=== PATIENT | male | born 1955 | race Caucasian/White ===

== ENCOUNTER 2016-08-27 08:21 | Day surgery (SDC) | payer BC, MEDICAID ==
[2016-08-27 11:47] VITALS: BP 161/93
--- NOTE | 2016-08-31 14:44 | OR ---
DATE OF PROCEDURE: 08/27/2016 PREOPERATIVE DIAGNOSIS: Possible colitis. POSTOPERATIVE DIAGNOSIS: Possible colitis involving the sigmoid colon and rectum. OPERATIVE PROCEDURE: Flexible sigmoidoscopy with random biopsies of the sigmoid colon and rectum ([id number]). ANESTHESIA: None. INDICATIONS FOR PROCEDURE: This is a 61-year-old, presenting with frequent loose bowel movements and/or diarrhea, they had become more or less debilitating. It is unclear as to the etiology. Plan is to proceed with a flexible sigmoidoscopy with a targeted random biopsy depending on the operative findings. Potential risks of the procedure including bleeding and perforation were discussed, and the patient wishes to proceed. DETAILS OF PROCEDURE: The patient was taken to the operating room and placed in the left lateral decubitus position. IV sedation was administered, after which the initial digital rectal exam was performed and was unremarkable. The flexible sigmoidoscope was then passed into the rectum with retroflexion revealing uncomplicated hemorrhoidal columns. The scope was eventually passed to roughly 40 cm from the dentate line. There was some possible very slight reddening within the mid and distal sigmoid colon, but this may in fact have been a normal variant, photo documentation was obtained. Certainly, there was no obvious gross inflammation and no ulceration or fibrinous exudate. Stool cultures were intended to be obtained for followup, but the preoperative fleet enema completely cleared all of the stool in the field of exam. At this point, multiple biopsies from the mid sigmoid colon, downward into the rectum, were randomly obtained and sent for histologic evaluation. No bleeding from the biopsy sites was seen and the procedure then concluded. The patient was taken to the recovery room in satisfactory condition. We will notify the patient when the pathology reports are back along with his referring physician in [place] to initiate followups. King Centeno MD /[id number]
== END 2016-08-27 11:55 | disposition home or self-care (01) ==
LOC: JP.SDS 08:21
PROVIDERS: ATTEND Surgery
DX: R19.7 Diarrhea, unspecified (principal); M10.9 Gout, unspecified; E53.8 Deficiency of other specified B group vitamins; E78.5 Hyperlipidemia, unspecified; I10 Essential (primary) hypertension; K21.9 Gastro-esophageal reflux disease without esophagitis; F12.90 Cannabis use, unspecified, uncomplicated; Z88.8 Allergy status to other drugs, medicaments and biological substances; Z91.09 Other allergy status, other than to drugs and biological substances; Z88.6 Allergy status to analgesic agent; Z79.899 Other long term (current) drug therapy
CPT/HCPCS: 88305

== ENCOUNTER 2020-09-26 12:21 | Emergency (ER) | payer MEDICARE, BC ==
[2020-09-26 12:43] VITALS: BP 147/86; PULSE 66
[2020-09-26] MEDS ORDERED: Alum Hydrox/Mag Hydrox/Simeth 15 ML, Lidocaine 2% 15 ML PO ONE ×2 (13:15)
--- NOTE | 2020-09-26 13:20 | EDM.PDOC ---
ED HPI GENERAL MEDICAL PROBLEM - General Chief Complaint: Chest Pain Stated Complaint: ANGINA Time Seen by Provider: 09/26/20 13:05 Source of Information: Reports: Patient, Old Records, RN History Limitations: Reports: No Limitations - History of Present Illness INITIAL COMMENTS - FREE TEXT/NARRATIVE: 65 yo male marijuana smoker presents with a few week hx of exertional chest p ain. No associated sx's. He has a positive FHx of CAD, but no personal hx. He has known elevated triglycerides. He is not having pain now, but did earlier with attempts at raking. He called the clinic and was directed to the ER. Onset: Gradual Duration: Week(s):, Intermittent Location: Reports: Chest Quality: Reports: Pressure Severity: Mild Improves with: Reports: Rest Worsens with: Reports: Movement (exertion) Context: Reports: Other (See HPI) Associated Symptoms: Reports: No Other Symptoms Treatments [employer]PER[employer] C[employer]TING [employer]ING: Reports: Other (see below) (none) - Related Data Allergies Allergy/AdvReac Type Severity Reaction Status Date / Time acetaminophen Allergy Severe Hives Verified 09/26/20 12:50 NSAIDS (Non-Steroidal Allergy Severe Hives Verified 09/26/20 12:50 Anti-Inflamma hydrocodone [From [place]] Allergy Intermediate Itching Verified 09/26/20 12:46 dust mite extract Allergy Severe Difficulty Uncoded 09/26/20 12:46 Breathing tree extract Allergy Severe Difficulty Uncoded 09/26/20 12:46 Breathing cats Allergy Intermediate Difficulty Uncoded 09/26/20 12:46 Breathing dogs Allergy Intermediate Difficulty Uncoded 09/26/20 12:46 Breathing tramadol Allergy Unknown Cannot Uncoded 09/26/20 12:46 Remember Home Meds: Home Meds Amylase/Lipase/Protease [Vitaliy NAIR 24,000 Unit] 2 cap PO TIDMEALS 08/26/16 [History] Cyanocobalamin (Vitamin B-12) [Cyanocobalamin Injection] 1,000 mcg IJ .QMONTH 08/26/16 [History] Omeprazole 20 mg PO DAILY 08/26/16 [History] amLODIPine [Norvasc] 5 mg PO DAILY 08/26/16 [History] atenoloL [Atenolol] 50 mg PO DAILY 08/26/16 [History] Montelukast Sodium [Singulair] 10 mg PO DAILY 09/29/17 [History] allopurinoL [Zyloprim] 100 mg PO BID 09/20/19 [History] Past Medical History HEENT History: Reports: Other (See Below) Other HEENT History: Stigmatism Cardiovascular History: Reports: High Cholesterol, Hypertension Respiratory History: Reports: Asthma, Bronchitis, Recurrent Gastrointestinal History: Reports: GERD, Irritable Bowel Syndrome, Other (See Below) Other Gastrointestinal History: Pancreatic deficiency Musculoskeletal History: Reports: Other (See Below) Other Musculoskeletal History: hx of 3 cervical fusions in neck. Hematologic History: Reports: B12 Deficiency Dermatologic History: Reports: Seborrheic Dermatitis - Infectious Disease History Infectious Disease History: Reports: Chicken Pox, Measles, Mumps - Past Surgical History HEENT Surgical History: Reports: Oral Surgery Other HEENT Surgeries/Procedures: Jaw repair. also roto rueter for sinus blockage. GI Surgical History: Reports: Colonoscopy Other Neurological Surgeries/Procedures: 3 cervical infusions Social & Family History - Tobacco Use Tobacco Use Status *Q: Never Tobacco User - Caffeine Use Caffeine Use: Reports: Soda - Alcohol Use Days Per Week of Alcohol Use: 7 Number of Drinks Per Day: 2 Total Drinks Per Week: 14 Date of Last Drink: 09/25/20 - Recreational Drug Use Recreational Drug Use: Yes Drug Use in Last 12 Months: Yes Recreational Drug Type: Reports: Marijuana/Hashish Recreational Drug Use Frequency: Weekly ED ROS GENERAL - Review of Systems Review Of Systems: See Below Constitutional: Reports: No Symptoms HEENT: Reports: No Symptoms Respiratory: Reports: No Symptoms Cardiovascular: Reports: Chest Pain Endocrine: Reports: No Symptoms GI/Abdominal: Reports: No Symptoms : Reports: No Symptoms Musculoskeletal: Reports: No Symptoms Skin: Reports: No Symptoms Neurological: Reports: No Symptoms Psychiatric: Reports: No Symptoms ED EXAM, GENERAL - Physical Exam Exam: See Below Exam Limited By: No Limitations General Appearance: Alert, WD/WN, No Apparent Distress Eye Exam: Bilateral Eye: Normal Inspection Ears: Normal External Exam, Normal Canal, Hearing Grossly Normal, Normal TMs Ear Exam: Bilateral Ear: Auricle Normal, Canal Normal, TM normal Nose: Normal Inspection, No Blood Throat/Mouth: Normal Inspection, Normal Lips, Normal Oropharynx, Normal Voice, No Airway Compromise Head: Atraumatic, Normocephalic Neck: Normal Inspection Respiratory/Chest: No Respiratory Distress, Lungs Clear, Normal Breath Sounds, No Accessory Muscle Use Cardiovascular: Regular Rate, Rhythm, No Edema GI/Abdominal: Normal Bowel Sounds, Soft, No Distention, Tender (epigastric). No: Non-Tender, Distended Back Exam: Normal Inspection Extremities: Normal Inspection, Normal Range of Motion, Non-Tender, No Pedal Edema Neurological: Alert, Oriented, CN II-XII Intact, Normal Cognition, No Motor/Sensory Deficits Psychiatric: Normal Affect, Normal Mood Skin Exam: Warm, Dry, Intact, Normal Color, No Rash #1 Interpretation EKG Date: 09/26/20 Time: 13:40 Rhythm: NSR Rate (Beats/Min): 56 [place]: Normal P-Wave: Present QRS: Normal ST-T: Normal QT: Normal Comparison: NA - No Prior EKG Course - Vital Signs Last Recorded V/S: Last Vital Signs Temp 36.3 C 09/26/20 12:42 Pulse 66 09/26/20 12:42 Resp 16 09/26/20 12:42 BP 147/86 H 09/26/20 12:42 Pulse Ox 96 09/26/20 12:42 - Orders/Labs/Meds Orders: Active Orders 24 hr Category Date Time Status Cardiac Monitoring [RC] .As Directed Care 09/26/20 12:36 Active EKG Documentation Completion [RC] ASDIRECTED Care 09/26/20 12:36 Active EKG 12 Lead [EK] Routine Ther 09/26/20 12:36 Ordered Labs: Laboratory Tests 09/26/20 09/26/20 Range/Units 13:20 13:20 WBC 8.8 (4.5-11.0) K/uL RBC 4.54 (4.30-5.90) M/uL Hgb 14.3 (12.0-15.0) g/dL Hct 44.5 (40.0-54.0) % MCV 98 (80-98) fL MCH 32 H (27-31) pg MCHC 32 (32-36) % Plt Count 209 (150-400) K/uL Sodium 142 (140-148) mmol/L Potassium 4.0 (3.6-5.2) mmol/L Chloride 106 (100-108) mmol/L Carbon Dioxide 28 (21-32) mmol/L Anion Gap 8.4 (5.0-14.0) mmol/L BUN 19 H (7-18) mg/dL Creatinine 1.3 (0.8-1.3) mg/dL Est Cr Clr Drug Dosing 57.57 mL/min Estimated GFR (MDRD) 55 L (>60) Glucose 104 (74-106) mg/dL Calcium 9.2 (8.5-10.1) mg/dL Troponin I < 0.017 (0.000-0.056) ng/mL Meds: Medications Discontinued Medications Generic Name Dose Route Start Last Admin Trade Name Nelson PRN Reason Stop Dose Admin Aspirin 324 mg 09/26/20 13:21 09/26/20 14:15 Aspirin 81 Mg Tab.Chew PO 09/26/20 13:22 Not Given ONETIME ONE Al Hydroxide/Mg Hydroxide 15 0 ml 09/26/20 13:15 09/26/20 14:10 ml/ Lidocaine HCl 15 ml PO 09/26/20 13:16 30 ml ONETIME ONE Administration - Re-Assessments/Exams Free Text/Narrative Re-Assessment/Exam: 09/26/20 14:25 epigastric pain gone after GI cocktail Departure - Departure Time of Disposition: 14:25 Disposition: Home, Self-Care 01 Condition: Fair Clinical Impression: Exertional chest pain Gastritis Qualifiers: Gastritis type: unspecified gastritis Chronicity: acute Gastritis bleeding: without bleeding Qualified Code(s): K29.00 - Acute gastritis without bleeding Instructions: Gastritis, Adult, [id number], Nonspecific Chest Pain, Adult Referrals: Tolu Huerta HIGH WORKER [Primary Care Provider] - Forms: ED Department Discharge Additional Instructions: Take famotidine 40 mg every day in the evening. You may also take Gaviscon per package instructions for added relief. Return for a stress test to further assess your chest pains. Return if you have pain at rest that does not resolve promptly. Sepsis Event Note (ED) - Evaluation Sepsis Screening Result: No Definite Risk - Focused Exam Vital Signs: Vital Signs Temp Pulse Resp BP Pulse Ox 09/26/20 12:42 36.3 C 66 16 147/86 H 96 - My Orders Last 24 Hours: My Active Orders 09/26/20 12:36 Cardiac Monitoring [RC] .As Directed EKG Documentation Completion [RC] ASDIRECTED EKG 12 Lead [EK] Routine - Assessment/Plan Last 24 Hours: My Active Orders 09/26/20 12:36 Cardiac Monitoring [RC] .As Directed EKG Documentation Completion [RC] ASDIRECTED EKG 12 Lead [EK] Routine
[2020-09-26] MEDS: Aspirin 81 MG Tab.Chew PO ONE ×2 (14:05→14:15)
== END 2020-09-26 15:04 | disposition home or self-care (01) ==
LOC: JP.ED 12:21
DX: K29.00 Acute gastritis without bleeding (principal); I10 Essential (primary) hypertension; J45.909 Unspecified asthma, uncomplicated; K21.9 Gastro-esophageal reflux disease without esophagitis; Z88.6 Allergy status to analgesic agent; Z91.048 Other nonmedicinal substance allergy status; Z88.5 Allergy status to narcotic agent; Z79.899 Other long term (current) drug therapy
CPT/HCPCS: 36415; 80048; 84484; 85027; 93005; 99285; A9270

== ENCOUNTER 2021-06-15 08:26 | Emergency (ER) | payer MEDICARE, BC ==
[2021-06-15 08:44] VITALS: BP 174/92; PULSE 65
[2021-06-15 09:37] LABS: CORONAVIRUS COVID-19 NAA NEGATIVE (NEGATIVE)
[2021-06-15] MEDS ORDERED: Ketorolac 30 MG/ML SDV IM ONE (10:00)
--- NOTE | 2021-06-15 10:03 | EDM.PDOC ---
ED HPI GENERAL MEDICAL PROBLEM - General Chief Complaint: Respiratory Problem Stated Complaint: allergic reaction Time Seen by Provider: 06/15/21 09:44 Source of Information: Reports: Patient, RN Notes Reviewed History Limitations: Reports: No Limitations - History of Present Illness INITIAL COMMENTS - FREE TEXT/NARRATIVE: 65-year-old gentleman presents emergency department today concerned about allergic reaction, he has had difficulty with Augmentin in the past with throat swelling he took a tablet on approximately 72 hours prior had a similar reaction only it was worse he now is complaining of generalized inflammation in his chest feeling difficult to breathe hurts to lay down in the thoracic region feels like his abdomen is distended. Left Abdomen Pain Score (Numeric/FACES): 7 - Related Data Allergies Allergy/AdvReac Type Severity Reaction Status Date / Time acetaminophen Allergy Severe Hives Verified 06/15/21 08:45 NSAIDS (Non-Steroidal Allergy Severe Hives Verified 06/15/21 08:45 Anti-Inflamma hydrocodone [From [place]] Allergy Intermediate Itching Verified 06/15/21 08:45 dust mite extract Allergy Severe Difficulty Uncoded 06/15/21 08:45 Breathing tree extract Allergy Severe Difficulty Uncoded 06/15/21 08:45 Breathing cats Allergy Intermediate Difficulty Uncoded 06/15/21 08:45 Breathing dogs Allergy Intermediate Difficulty Uncoded 06/15/21 08:45 Breathing tramadol Allergy Unknown Cannot Uncoded 06/15/21 08:45 Remember Home Meds: Home Meds Amylase/Lipase/Protease [Vitaliy NAIR 24,000 Unit] 2 cap PO TIDMEALS 08/26/16 [History] Cyanocobalamin (Vitamin B-12) [Cyanocobalamin Injection] 1,000 mcg IJ .QMONTH 08/26/16 [History] amLODIPine [Norvasc] 5 mg PO DAILY 08/26/16 [History] atenoloL [Atenolol] 50 mg PO DAILY 08/26/16 [History] Montelukast Sodium [Singulair] 10 mg PO DAILY 09/29/17 [History] Clopidogrel [Plavix] 75 mg PO DAILY 06/15/21 [History] Past Medical History HEENT History: Reports: Other (See Below) Other HEENT History: Stigmatism Cardiovascular History: Reports: Angina, High Cholesterol, Hypertension, Stents Respiratory History: Reports: Asthma, Bronchitis, Recurrent Gastrointestinal History: Reports: GERD, Irritable Bowel Syndrome, Other (See Below) Other Gastrointestinal History: Pancreatic deficiency Musculoskeletal History: Reports: Other (See Below) Other Musculoskeletal History: hx of 3 cervical fusions in neck. Hematologic History: Reports: B12 Deficiency Dermatologic History: Reports: Seborrheic Dermatitis - Infectious Disease History Infectious Disease History: Reports: Chicken Pox, Measles, Mumps - Past Surgical History HEENT Surgical History: Reports: Oral Surgery Other HEENT Surgeries/Procedures: Jaw repair. also roto rueter for sinus blockage. GI Surgical History: Reports: Colonoscopy Other Neurological Surgeries/Procedures: 3 cervical infusions Musculoskeletal Surgical History: Reports: Shoulder Surgery Other Musculoskeletal Surgeries/Procedures:: rotator cuff 2019 Social & Family History - Tobacco Use Tobacco Use Status *Q: Never Tobacco User Second Hand Smoke Exposure: No - Caffeine Use Caffeine Use: Reports: Coffee - Alcohol Use Days Per Week of Alcohol Use: 6 Number of Drinks Per Day: 2 Total Drinks Per Week: 12 - Recreational Drug Use Recreational Drug Use: Yes Recreational Drug Type: Reports: Marijuana/Hashish ED ROS GENERAL - Review of Systems Review Of Systems: See Below (None) Constitutional: Reports: No Symptoms HEENT: Reports: No Symptoms Respiratory: Reports: Shortness of Breath Cardiovascular: Reports: No Symptoms GI/Abdominal: Reports: Distension Musculoskeletal: Reports: Back Pain ED EXAM, GENERAL - Physical Exam Exam: See Below Exam Limited By: No Limitations General Appearance: Alert, WD/WN, No Apparent Distress Respiratory/Chest: No Respiratory Distress, Lungs Clear, Normal Breath Sounds, No Accessory Muscle Use, Chest Non-Tender Cardiovascular: Regular Rate, Rhythm, No Murmur GI/Abdominal: Soft, Non-Tender, No Distention Course - Vital Signs Last Recorded V/S: Last Vital Signs Temp 96 F L 06/15/21 08:39 Pulse 65 06/15/21 08:39 Resp 16 06/15/21 08:39 BP 174/92 H 06/15/21 08:39 Pulse Ox 96 06/15/21 08:39 - Orders/Labs/Meds Orders: Active Orders 24 hr Category Date Time Status Abdomen 1V Upright [CR] Stat Exams 06/15/21 09:59 Taken Chest 2V [CR] Stat Exams 06/15/21 09:59 Taken Isolation [COMM] Stat Oth 06/15/21 08:32 Ordered Labs: Laboratory Tests 0106/15/21 06/15/21 Range/Units 08:56 10:11 10:11 WBC 10.8 (3.2-11.0) K/uL RBC 4.52 (4.14-5.76) M/uL Hgb 14.4 (12.9-16.9) Hct 44.1 (38.4-49.7) % MCV 97.6 (81.4-99.0) fL MCH 31.9 (31.6-35.5) pg MCHC 32.7 (31.6-35.5) g/dL Plt Count 217 (130-375) K/uL Immature Gran % (Auto) 1.0 H (0.0-0.7) % Neut % (Auto) 70.6 H (36-66) % Lymph % (Auto) 19.8 L (24-44) % [place] % (Auto) 7.8 H (2-6) % Eos % (Auto) 0.6 L (2-4) % Baso % (Auto) 0.2 (0-1) % Neut # (Auto) 7.62 H (1.0-7.6) K/uL Lymph # (Auto) 2.13 (0.8-3.3) K/uL [place] # (Auto) 0.84 (0.20-0.90) K/uL Eos # (Auto) 0.06 (0.00-0.40) K/uL Baso # (Auto) 0.02 (0.00-0.10) K/uL Immature Gran # (Auto) 0.11 (0.00-0.23) K/uL Sodium 139 L (140-148) mmol/L Potassium 4.0 (3.6-5.2) mmol/L Chloride 102 (100-108) mmol/L Carbon Dioxide 28 (21-32) mmol/L Anion Gap 13.0 (5.0-14.0) mmol/L BUN 23 H D (7-18) mg/dL Creatinine 1.3 (0.8-1.3) mg/dL Est Cr Clr Drug Dosing 56.65 mL/min Estimated GFR (MDRD) 55 L (>60) Glucose 98 (74-106) mg/dL Lactic Acid (0.4-2.0) mmol/L Calcium 9.4 (8.5-10.1) mg/dL Total Bilirubin 0.7 (0.2-1.0) mg/dL AST 24 (15-37) U/L ALT 60 (12-78) U/L Alkaline Phosphatase 54 (46-116) U/L Troponin I High Sens 6.1 (<=60.3) pg/mL C-Reactive Protein 0.05 (0.0-0.3) mg/dL Total Protein 6.9 (6.4-8.2) g/dL Albumin 4.2 (3.4-5.0) g/dL Globulin 2.7 (2.3-3.5) g/dL Albumin/Globulin Ratio 1.6 (1.2-2.2) Influenza Type A RNA Negative (NEGATIVE) RSV RNA (INAAT) Negative (NEGATIVE) Influenza Type B RNA Negative (NEGATIVE) SARS-CoV-2 RNA ([facility]) Negative (NEGATIVE) 06/15/21 Range/Units 10:11 WBC (3.2-11.0) K/uL RBC (4.14-5.76) M/uL Hgb (12.9-16.9) Hct (38.4-49.7) % MCV (81.4-99.0) fL MCH (31.6-35.5) pg MCHC (31.6-35.5) g/dL Plt Count (130-375) K/uL Immature Gran % (Auto) (0.0-0.7) % Neut % (Auto) (36-66) % Lymph % (Auto) (24-44) % [place] % (Auto) (2-6) % Eos % (Auto) (2-4) % Baso % (Auto) (0-1) % Neut # (Auto) (1.0-7.6) K/uL Lymph # (Auto) (0.8-3.3) K/uL [place] # (Auto) (0.20-0.90) K/uL Eos # (Auto) (0.00-0.40) K/uL Baso # (Auto) (0.00-0.10) K/uL Immature Gran # (Auto) (0.00-0.23) K/uL Sodium (140-148) mmol/L Potassium (3.6-5.2) mmol/L Chloride (100-108) mmol/L Carbon Dioxide (21-32) mmol/L Anion Gap (5.0-14.0) mmol/L BUN (7-18) mg/dL Creatinine (0.8-1.3) mg/dL Est Cr Clr Drug Dosing mL/min Estimated GFR (MDRD) (>60) Glucose (74-106) mg/dL Lactic Acid 1.7 (0.4-2.0) mmol/L Calcium (8.5-10.1) mg/dL Total Bilirubin (0.2-1.0) mg/dL AST (15-37) U/L ALT (12-78) U/L Alkaline Phosphatase (46-116) U/L Troponin I High Sens (<=60.3) pg/mL C-Reactive Protein (0.0-0.3) mg/dL Total Protein (6.4-8.2) g/dL Albumin (3.4-5.0) g/dL Globulin (2.3-3.5) g/dL Albumin/Globulin Ratio (1.2-2.2) Influenza Type A RNA (NEGATIVE) RSV RNA (INAAT) (NEGATIVE) Influenza Type B RNA (NEGATIVE) SARS-CoV-2 RNA ([facility]) (NEGATIVE) Meds: Medications Discontinued Medications Generic Name Dose Route Start Last Admin Trade Name Nelson PRN Reason Stop Dose Admin Ketorolac Tromethamine 30 mg 06/15/21 10:00 06/15/21 10:24 Ketorolac 30 Mg/Ml Sdv IM 06/15/21 10:01 30 mg ONETIME ONE Administration Departure - Departure Time of Disposition: 11:35 Disposition: Home, Self-Care 01 Condition: Fair Clinical Impression: Allergic reaction Qualifiers: Encounter type: initial encounter Qualified Code(s): T78.40XA - Allergy, unspecified, initial encounter - Discharge Information Instructions: Allergies, Adult, [id number] Referrals: Tolu Huerta NP [Primary Care Provider] - Forms: ED Department Discharge Additional Instructions: Continue with uretic medications, recommend nonsteroidal anti-inflammatories, please followup with your primary care provider in 3-5 days if not better, please call return to the emergency department with worsening of symptoms. Sepsis Event Note (ED) - Evaluation Sepsis Screening Result: No Definite Risk - Focused Exam Vital Signs: Vital Signs Temp Pulse Resp BP Pulse Ox 06/15/21 08:39 96 F L 65 16 174/92 H 96 - My Orders Last 24 Hours: My Active Orders 06/15/21 08:32 Isolation [COMM] Stat 06/15/21 09:59 Abdomen 1V Upright [CR] Stat Chest 2V [CR] Stat - Assessment/Plan Last 24 Hours: My Active Orders 06/15/21 08:32 Isolation [COMM] Stat 06/15/21 09:59 Abdomen 1V Upright [CR] Stat Chest 2V [CR] Stat Plan: Assessment Acuity = acute Site and laterality = allergic reaction Etiology = possibly the Augmentin Manifestations = none Location of injury = Home Lab values = CBC BMP lactic acid, troponin, CRP all within normal limits chest x-ray abdominal film I did review films myself I cannot appreciate any acute process, the official read from radiology is pending Plan He had some improvement with Toradol provided in the emergency department prescription written for Flexeril 10 mg 1 tab p.o. 3 times daily as needed total #15 and follow-up with his primary care next 3 to 5 days if not better This note was dictated using [employer] voice recognition software please call with any questions on syntax or grammar.
--- NOTE | 2021-06-16 10:17 | CR ---
Abdomen 1V Upright CLINICAL HISTORY: Pain FINDINGS: No free air is identified. The small intestinal configuration is nonacute. There is some gas and feces in the colon. No urinary stones are identified IMPRESSION: Nonacute intestinal gas pattern
--- NOTE | 2021-06-17 10:54 | CR ---
CHEST: 2 view CLINICAL HISTORY:Chest pain COMPARISON:None FINDINGS: The heart size, pulmonary vascularity and hilar structures are normal. No infiltrate effusion or pneumothorax is seen. IMPRESSION: No acute cardiopulmonary process.
== END 2021-06-15 11:50 | disposition home or self-care (01) ==
LOC: JP.ED 08:26
DX: T78.40XA Allergy, unspecified, initial encounter (principal); I10 Essential (primary) hypertension; Z20.822 Contact with and (suspected) exposure to COVID-19; Z88.8 Allergy status to other drugs, medicaments and biological substances; Z79.899 Other long term (current) drug therapy
CPT/HCPCS: 0241U; 36415; 71046; 74018; 80053; 83605; 84484; 85025; 86140; 96372; 99283; J1885

== ENCOUNTER 2021-06-20 12:22 | Emergency (ER) | payer MEDICARE, BC ==
[2021-06-20] MEDS ORDERED: Sodium Chloride 0.9% 1,000 ML IV SCH (13:15)
[2021-06-20] MEDS ORDERED: Iopamidol 612 MG/ML 100 ML Bottle IV PRN (13:29)
[2021-06-20] MEDS: Sodium Chloride 0.9% 10 ML Syringe FLUSH ONE ×2 (13:57→14:33)
[2021-06-20 14:14] VITALS: BP 159/92; PULSE 73
== END 2021-06-20 16:12 | disposition home or self-care (01) ==
LOC: JP.ED 12:22
DX: R14.0 Abdominal distension (gaseous) (principal); I10 Essential (primary) hypertension; J45.909 Unspecified asthma, uncomplicated; Z88.6 Allergy status to analgesic agent; Z88.5 Allergy status to narcotic agent; Z91.048 Other nonmedicinal substance allergy status; Z79.02 Long term (current) use of antithrombotics/antiplatelets; Z79.899 Other long term (current) drug therapy; Z20.822 Contact with and (suspected) exposure to COVID-19
CPT/HCPCS: 74177; 99284; J7030; Q9967; U0002; 99285

== ENCOUNTER 2021-06-24 07:13 | Day surgery (SDC) | payer MEDICARE, BC ==
[~2021-06-24 07:13] MED LIST: Midazolam 1 MG/ML 2 ML SDV ONE; Propofol 200 MG/20 ML SDV ONE; fentaNYL 100 MCG/2 ML SDV ONE
[2021-06-24] MEDS ORDERED: Dextrose 5%-Lactated Ringers 1,000 ML IV SCH (08:30)
[2021-06-24] MEDS ORDERED: Ondansetron 4 MG/2 ML SDV ONE (10:35)
[2021-06-24 12:31] VITALS: BP 132/85; PULSE 62
== END 2021-06-24 12:38 | disposition home or self-care (01) ==
LOC: JP.SDS 07:13
PROVIDERS: ATTEND Surgery
DX: K29.50 Unspecified chronic gastritis without bleeding (principal); K31.89 Other diseases of stomach and duodenum; K44.9 Diaphragmatic hernia without obstruction or gangrene; K21.00 Gastro-esophageal reflux disease with esophagitis, without bleeding; I10 Essential (primary) hypertension; J45.909 Unspecified asthma, uncomplicated; Z95.5 Presence of coronary angioplasty implant and graft
CPT/HCPCS: 43239; 87081; J2250; J2405; J2704; J3010; J7121; 88305

== ENCOUNTER 2022-04-28 06:28 | Day surgery (SDC) | payer MEDICARE, BC ==
[2022-04-28] MEDS ORDERED: Propofol 200 MG/20 ML SDV ONE (06:57)
[2022-04-28] MEDS ORDERED: fentaNYL 50 MCG/ML SDV ONE (06:57)
[2022-04-28] MEDS ORDERED: Midazolam 1 MG/ML 2 ML SDV ONE (06:57)
[2022-04-28] MEDS ORDERED: Lidocaine 1% 2 ML ONE (07:15)
[2022-04-28] MEDS ORDERED: Dextrose 5%-Lactated Ringers 1,000 ML IV SCH (07:30)
[2022-04-28 08:37] VITALS: BP 146/91; PULSE 56
== END 2022-04-28 09:10 | disposition home or self-care (01) ==
LOC: JP.SDS 06:28
PROVIDERS: ATTEND Surgery
DX: Z12.11 Encounter for screening for malignant neoplasm of colon (principal); K57.30 Diverticulosis of large intestine without perforation or abscess without bleeding; I10 Essential (primary) hypertension; E78.5 Hyperlipidemia, unspecified; K21.9 Gastro-esophageal reflux disease without esophagitis; Z86.010 Personal history of colon polyps; Z79.899 Other long term (current) drug therapy; Z91.040 Latex allergy status; Z88.6 Allergy status to analgesic agent; Z88.5 Allergy status to narcotic agent; Z88.1 Allergy status to other antibiotic agents
CPT/HCPCS: G0105; J2250; J2704; J3010; J7121